=== PATIENT | female | born 1965 | race Caucasian/White ===

== ENCOUNTER → 2018-09-14 | Outpatient (CLI) | payer OTHER ==
[~2018-09-14] MED LIST: ADVAIR HFA 1112 UNIT INH; ALBUTEROL NEB; ALBUTEROL2.5 MG/31 INH; BENICAR HCT 201 EACH PO; CHERACOL COUGH120 ML PO; COZAAR 25 MG TA25 M2; DUONEB 2.5-0.5 M3 ML INH; FLEXERIL; FLEXERIL PO; HYDROCODONE-AP1 EAC6 PO; IBUPROFEN 800800 M1 PO; MAXALT MLT ODT10 MG PO; MEDROLDOSEPACK PO; NEXIUM20 M1 PO; ONDANSETRON HCL4 M2 PO; PREDNISOLONE; ULTRAM 50MG TAB50 MG PO; XANAX 0.25 MG0.25 MG PO; ZANAFLEX4 MG; [UNRECOGNIZED DRUG - REMARK]; [UNRECOGNIZED DRUG - REMARK]
[2018-09-14 10:10] LABS: CREATININE 0.9 mg/dL (0.6-1.3)
== END ==
LOC: M.CT 09:03
PROVIDERS: Family Medicine
DX: R91.8 Other nonspecific abnormal finding of lung field (principal); Z79.899 Other long term (current) drug therapy

== ENCOUNTER 2019-12-25 18:09 | Observation (INO) | payer OTHER ==
[~2019-12-25] VITALS: Ht 157.5 cm; Wt 119.3 kg
[2019-12-25 18:18] VITALS: BP 108/61
[2019-12-25 18:20] VITALS: BP 108/61
[2019-12-25 18:49] LABS: ABSOLUTE EOSINOPHILS 0.2 thou/uL (0.0-0.7); ABSOLUTE LYMPHOCYTES 1.9 thou/uL (0.8-5.3); ABSOLUTE MONOCYTES 0.6 thou/uL (0.0-1.2); ABSOLUTE NEUTROPHILS 6.5 thou/uL (1.6-8.1); BASOPHILS 0.5 %; EOSINOPHILS 2.2 %; HEMATOCRIT 39.5 % (37.0-47.0); HEMOGLOBIN 13.7 gm/dL (12.0-15.0); LYMPHOCYTES 20.3 %; MCH 29.9 pg (26.0-34.0); MCHC 34.6 g/dL (28.0-37.0); MCV 86.4 fL (80.0-100.0); MONOCYTES 6.8 %; MPV 8.6 fl. (7.2-11.1); NUCLEATED RBCS 0 /100WBC; PLATELET COUNT* 309 thou/uL (150-400); POLYS 70.2 %; RBC 4.57 mil/uL (4.20-5.00); RDW-CV 13.4 % (10.5-14.5); WBC 9.2 thou/uL (4.0-11.0)
[2019-12-25 19:00] LABS: APTT 24.5 Seconds (25.0-31.3); PROTIME 10.5 Seconds (9.20-11.50)
[2019-12-25 19:05] LABS: CALCIUM 8.3 mg/dL (8.5-10.1)
[2019-12-25 19:07] LABS: POTASSIUM 2.4 mmol/L (3.5-5.1)
[2019-12-25 19:19] LABS: ALBUMIN 3.1 g/dL (3.4-5.0); CK-MB MASS 0.6 ng/mL (<0.5-3.6); TOTAL BILIRUBIN 0.4 mg/dL (<0.1-1.0); TOTAL PROTEIN 6.7 g/dL (6.4-8.2)
[2019-12-25 22:51] VITALS: BP 107/56
[2019-12-26 03:05] VITALS: BP 105/91
[2019-12-26 07:14] VITALS: BP 115/67
[2019-12-26 09:25] VITALS: BP 96/50
[2019-12-26 12:38] VITALS: BP 123/66
--- NOTE | 2019-12-26 12:50 | EKG ---
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: : 1965 Requested By: Jonathan Matute Order Number: [id number] MD: Collins Irizarry Measurements Intervals [place] Rate: 97 P: -3 ID: [id number] QRS: -15 QRSD: 124 T: 0 QT: 352 QTc: 447 Interpretive Statements Sinus rhythm Low voltage throughout Nonspecific T wave flattening Baseline wander in lead(s) V1,V2,V3,V4,V5,V6 Compared to ECG 12/12/2014 20:12:03 No significant changes noted Electronically Signed On 12-26-2019 12:50:36 [employer] by Collins Irizarry [email or web address] <ELECTRONICALLY SIGNED> By: Collins Irizarry MD, FACC 12/26/19 1250 15 15 Collins Irizarry MD, FACC /EPI
[2019-12-26 13:45] LABS: CALCIUM 8.7 mg/dL (8.5-10.1); CREATININE 0.9 mg/dL (0.6-1.3)
[2019-12-26 13:46] LABS: POTASSIUM 3.3 mmol/L (3.5-5.1)
[2019-12-26 13:48] LABS: MAGNESIUM 2.2 mg/dL (1.8-2.4); PHOSPHORUS* 3.3 mg/dL (2.5-4.9)
[2019-12-26] MEDS ORDERED: COZAAR 25 MG TA25 M1 PO (14:43)
[2019-12-26] MEDS ORDERED: TOPROL XL25 MG PO (14:44)
[2019-12-26] MEDS ORDERED: KLOR-CON M2020 MEQ PO (14:46)
[2019-12-26 16:00] VITALS: BP 100/56
[2019-12-26 21:22] VITALS: BP 120/66
[2019-12-27] VITALS: BP 133/63
[2019-12-27 04:00] VITALS: BP 133/72
[2019-12-27 06:11] LABS: CALCIUM 8.4 mg/dL (8.5-10.1); CREATININE 0.9 mg/dL (0.6-1.3); POTASSIUM 3.5 mmol/L (3.5-5.1)
[2019-12-27 08:00] VITALS: BP 133/75
[2019-12-27 12:00] VITALS: BP 130/78
--- NOTE | 2019-12-27 15:08 | 2DMMODE ---
[place] [address] 2 D/M-MODE ECHOCARDIOGRAM Name: ELYSE GREEN Room: [address] Tomás Bae#: [id number] Admission: 12/25/19 Attend Phys: Devan Yousif Discharge: Date of : 61 Date of Service: 12/27/19 1507 Report #: [id number] THIS REPORT FOR: cc: Kisha Hester MD, Tuongvan T. MD Blick, David R. MD [facility] ~ APPROVED REPORT Study performed: 12/27/2019 14:02:32 EXAM: Comprehensive 2D, Doppler, and color-flow Echocardiogram Patient Location: Bedside BSA: 2.15 HR: 71 bpm BP: 133/72 mmHg Other Information Study Quality: Fair Indications Palpitations Chest Pain 2D Dimensions IVSd: 10.98 (7-11mm) LVOT Diam: 21.62 (18-24mm) LVDd: 46.03 mm PWd: 10.72 (7-11mm) Ascending Ao: 30.33 (22-36mm) LVDs: 29.07 (25-40mm) Aortic Root: 30.34 mm Volumes Left Atrial Volume (Systole) LA ESV Index: 27.40 mL/m2 Aortic Valve AoV Peak Israel.: 1.37 m/s AO Peak Gr.: 7.50 mmHg LVOT Max P.39 mmHg AO Mean Gr.: 4.18 mmHg LVOT Mean P.37 mmHg LVOT Max V: 0.77 m/s AO V2 VTI: 25.37 cm LVOT Mean V: 0.55 m/s SUNIL (VTI): 2.20 cm2 LVOT V1 VTI: 15.17 [place] [address] 2 D/M-MODE ECHOCARDIOGRAM Name: ELYSE GREEN Room: [address] MAmadorRAmador#: [id number] Admission: 12/25/19 Attend Phys: Devan Yousif Discharge: Date of : 61 Date of Service: 12/27/19 1507 Report #: [id number] E/A Ratio: 1.03 MV Decel. Time: 221.70 ms MV E Max Israel.: 0.74 m/s MV PHT: 64.29 ms MVA (PHT): 3.42 cm2 TDI E/Lateral E': 5.29 E/Medial E': 9.25 Medial E' Israel.: 0.08 m/s Lateral E' Israel.: 0.14 m/s Pulmonary Valve PV Peak Israel.: 0.78 m/s PV Peak Gr.: 2.41 mmHg Tricuspid Valve RAP Estimate: 5.00 mmHg TR Peak Gr.: 22.95 mmHg RVSP: 27.95 mmHg PA Pressure: 27.95 mmHg Left Ventricle The left ventricle is normal size. There is normal LV segmental wall motion. There is normal left ventricular wall thickness. Left ventricular systolic function is normal. The left ventricular ejection fraction is within the normal range. LVEF is 55-60%. Right Ventricle The right ventricle is normal size. The right ventricular systolic function is normal. Atria The left atrium size is normal. The right atrium size is normal. Aortic Valve The aortic valve is not well visualized. No aortic regurgitation is present. There is no aortic valvular stenosis. Mitral Valve The mitral valve is normal in structure. There is no mitral valve regurgitation noted. No evidence of mitral valve stenosis. Tricuspid Valve The tricuspid valve is normal in structure. Trace tricuspid regurgitation[place] [address] 2 D/M-MODE ECHOCARDIOGRAM Name: ELYSE GREEN Room: [address] Catalino#: [id number] Admission: 12/25/19 Attend Phys: Devan Yousif Discharge: Date of : 61 Date of Service: 12/27/19 1507 Report #: [id number] Pulmonic valve is not well visualized. There is no pulmonic valvular regurgitation. Great Vessels The aortic root is normal in size. IVC is normal in size and collapses >50% with inspiration. Pericardium There is no pericardial effusion. <Conclusion> Left ventricular systolic function is normal. The left ventricular ejection fraction is within the normal range. <ELECTRONICALLY SIGNED> By: Miguel Martins MD, FACC 12/27/19 1507 1507 1507 Miguel Martins MD, FACC /INF
[2019-12-27 16:00] VITALS: BP 124/70
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
[2019-12-27 16:36] VITALS: BP 130/78
[2019-12-27] MEDS ORDERED: METOPROLOL SUCC25 M1 PO (16:54)
[2019-12-27] MEDS ORDERED: KLOR-CON 10 ER10 MEQ PO (16:54)
--- NOTE | 2019-12-28 07:07 | CON ---
[address] [address] CONSULTATION Name: ELYSE GREEN Room: [address] Tomás Bae#: [id number] Admission: 12/25/19 Attend Phys: Devan Elmore Eldonhua, Discharge: 12/27/19 Date of : 61 Report #: [id number] THIS REPORT FOR: //name// cc: Kisha Hester MD, Tuongvan T. MD ~ INDICATION: Tachycardia and chest pain. HISTORY OF PRESENT ILLNESS: The patient is a very pleasant 54-year-old white female whose only known cardiac risk factor is hypertension. She presented to the Emergency Room yesterday after having a second episode of palpitations described as tachycardia. The patient has a pulse oximeter at home. With this, she documented heart rates in the 130s with her first episode and 150s with her second episode. The episode lasted 10-15 minutes. She has had 2 in the past 3 days. By the time she was in the Emergency Room, her heart rate was normal and she was in sinus rhythm. With these episodes, she describes chest tightness radiating to the shoulder and arm. She denies diaphoresis. She has mild shortness of breath. During and after the episode, she describes fatigue. Her initial EKG showed sinus rhythm without acute ST segment abnormalities. Her cardiac enzymes have been unremarkable. PAST MEDICAL HISTORY: 1. Asthma. 2. Hypertension. 3. History of deep venous thrombosis in 2012. 4. Chronic back pain. 5. Bilateral knee surgeries. 6. Left breast biopsy that was benign. 7. Hypokalemia. SOCIAL HISTORY: The patient is a lifelong nonsmoker. She does not drink alcohol. She is and her is in attendance with her. FAMILY HISTORY: Noncontributory. REVIEW OF SYSTEMS: Positive for asthma, palpitations, chest discomfort, dyspnea on exertion, mild anxiety, otherwise unremarkable. PHYSICAL EXAMINATION: VITAL SIGNS: Blood pressure 115/67, pulse 64 and regular. GENERAL: This is a pleasant, moderately obese female, in no distress. Mood and affect appropriate. HEENT: The patient is wearing glasses. Extraocular muscles intact. Mucous membranes are moist. NECK: Shows no jugular venous distention. There are no carotid bruits. CHEST: Reveals clear lung alexandre. I do not appreciate wheezes or rales. CARDIOVASCULAR: Reveals a regular rhythm with normal S1 and [place] [address] CONSULTATION Name: ELYSE GREEN Room: [address]#: [id number] Admission: 12/25/19 Attend Phys: Devan Slaughter, Discharge: 12/27/19 Date of : 61 Report #: [id number] appreciate gallop or murmur. ABDOMEN: Reveals normal bowel sounds. The abdomen is soft, nontender. EXTREMITIES: Shows no edema. Peripheral pulses 2+ and palpable. SKIN: Dry. LABORATORY DATA: Reviewed. Sodium 136, potassium 4.3, chloride 98, bicarbonate 27, BUN 8, creatinine 1.0, serum glucose 168. LFTs are within normal limits. Troponins less than 0.06 on 3 separate occasions. NT-proBNP 28. Coags are within normal limits. D-dimer 0.44. White blood cell count 9.2, hemoglobin 13.7 and platelet count 309,000. Chest x-ray shows atelectasis without other acute cardiopulmonary abnormality. IMPRESSION AND RECOMMENDATIONS: 1. Chest pain with features to suggest possible angina in the setting of tachycardia. Enzymes are unremarkable. I would recommend further evaluation with stress testing. Echocardiogram also ordered to assess left ventricular function. 2. Hypokalemia, appears to be corrected presently. Continue home supplement. 3. Hypertension. Blood pressure appears to be adequately controlled at present. 4. Palpitations and tachycardia. Etiology is not known at this time. The patient had 2 fairly distinct episodes. I suspect she may have some supraventricular tachycardia. Continue telemetry monitoring. Further treatment depending discovering what the underlying arrhythmia is. <ELECTRONICALLY SIGNED> By: Collins Irizarry MD, FACC 12/28/19 0707 1243 [id number] Irizarry MD, FACC /nt
== END 2019-12-27 17:30 | disposition home or self-care (01) ==
LOC: M.ERS 18:09 → M.TBA-ER 18:41 → M.2W 18:41
PROVIDERS: Family Medicine; ADMIT Family Medicine; ATTEND Family Medicine
DX: R07.89 Other chest pain (principal); J45.909 Unspecified asthma, uncomplicated; R06.4 Hyperventilation; E87.6 Hypokalemia; M54.9 Dorsalgia, unspecified; R00.2 Palpitations; K21.9 Gastro-esophageal reflux disease without esophagitis; G89.29 Other chronic pain; F41.0 Panic disorder [episodic paroxysmal anxiety]; R00.0 Tachycardia, unspecified; E66.01 Morbid (severe) obesity due to excess calories; Z68.42 Body mass index [BMI] 45.0-49.9, adult; Z79.899 Other long term (current) drug therapy; Z20.828 Contact with and (suspected) exposure to other viral communicable diseases

== ENCOUNTER → 2020-08-24 | Outpatient (CLI) | payer OTHER ==
[~2020-08-24] MED LIST changes: +COZAAR 25 MG TA25 M1 PO; +KLOR-CON 10 ER10 MEQ PO; +KLOR-CON M2020 MEQ PO; +METOPROLOL SUCC25 M1 PO; +TOPROL XL25 MG PO
== END ==
LOC: M.RAD 14:00
DX: Z12.31 Encounter for screening mammogram for malignant neoplasm of breast (principal); R09.89 Other specified symptoms and signs involving the circulatory and respiratory systems